=== PATIENT | male | born 1975 | race Caucasian/White ===

== ENCOUNTER 2019-10-16 12:28 | Emergency (ER) | payer BC, OTHER ==
[~2019-10-16] VITALS: Ht 177 cm; Wt 98.0 kg
[2019-10-16] MEDS ORDERED: ALPRAZolam 0.5 MG (XANAX) TAB PO SCH (12:45)
[2019-10-16] MEDS ORDERED: ASPIRIN 81 MG CHEW (CHILDREN'S ASA) PO ONE (12:45)
--- NOTE | 2019-10-16 12:52 | ED Chest Pain ---
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 He's been under a lot of stress lately due to the absence of income, getting the licensing for a new tattoo shop and the inspections today. He feels better at this time. Timing/Duration: intermittent Severity/Quality: moderate Location: central Radiation: no radiation Activities at Onset: none Prior CP/Workup: no prior chest pain ASA po CIVIL ENGINEERING DIRECTOR: Yes NTG SL CIVIL ENGINEERING DIRECTOR: No Allergies and Home Medications Allergies Coded Allergies: No Known Drug Allergies (Unverified , 10/16/19) Patient Home Medication List Home Medication List Reviewed: Yes Review of Systems Review of Systems Constitutional: see HPI EENTM: No Symptoms Reported Respiratory: No Symptoms Reported Cardiovascular: See HPI, Chest Pain Gastrointestinal: See HPI Genitourinary: No Symptoms Reported Musculoskeletal: no symptoms reported Skin: no symptoms reported Psychiatric/Neurological: No Symptoms Reported Endocrine: No Symptoms Reported Hematologic/Lymphatic: No Symptoms Reported Physical Exam Vital Signs Capillary Refill : Height, Weight, BMI Height: '" Weight: lbs. oz. kg; BMI Method: General Appearance: No Apparent Distress, WD/WN HEENT: PERRL/EOMI, TMs Normal Neck: Full Range of Motion, Normal Inspection Respiratory: No Accessory Muscle Use, No Respiratory Distress Cardiovascular: Regular Rate, Rhythm, Normal Peripheral Pulses Gastrointestinal: Non Tender, Soft Neurologic/Psychiatric: Alert, Oriented x3 Skin: Normal Color, Warm/Dry Progress/Results/Core Measures Results/Orders Lab Results Laboratory Tests Test 10/16/19 12:47 Range/Units White Blood Count 8.8 4.3-11.0 10^3/uL Red Blood Count 4.73 4.35-5.85 10^6/uL Hemoglobin 13.9 13.3-17.7 G/DL Hematocrit 41 40-54 % Mean Corpuscular Volume 88 80-99 FL Mean Corpuscular Hemoglobin 29 25-34 PG Mean Corpuscular Hemoglobin Concent 34 32-36 G/DL Red Cell Distribution Width 13.9 10.0-14.5 % Platelet Count 324 130-400 10^3/uL Mean Platelet Volume 9.2 7.4-10.4 FL Neutrophils (%) (Auto) 63 42-75 % Lymphocytes (%) (Auto) 19 12-44 % Monocytes (%) (Auto) 11 0-12 % Eosinophils (%) (Auto) 6 0-10 % Basophils (%) (Auto) 1 0-10 % Neutrophils # (Auto) 5.6 1.8-7.8 X 10^3 Lymphocytes # (Auto) 1.7 1.0-4.0 X 10^3 Monocytes # (Auto) 1.0 0.0-1.0 X 10^3 Eosinophils # (Auto) 0.5 H 0.0-0.3 10^3/uL Basophils # (Auto) 0.1 0.0-0.1 10^3/uL Prothrombin Time 12.8 12.2-14.7 SEC INR Comment 0.9 0.8-1.4 Activated Partial Thromboplast Time 26 24-35 SEC D-Dimer <= 0.27 0.00-0.49 UG/ML Sodium Level 138 135-145 MMOL/L Potassium Level 4.3 3.6-5.0 MMOL/L Chloride Level 105 98-107 MMOL/L Carbon Dioxide Level 25 21-32 MMOL/L Anion Gap 8 5-14 MMOL/L Blood Urea Nitrogen 15 7-18 MG/DL Creatinine 0.87 0.60-1.30 MG/DL Estimat Glomerular Filtration Rate > 60 BUN/Creatinine Ratio 17 Glucose Level 105 70-105 MG/DL Calcium Level 8.9 8.5-10.1 MG/DL Corrected Calcium 8.7 8.5-10.1 MG/DL Magnesium Level 2.0 1.6-2.4 MG/DL Total Bilirubin 0.4 0.1-1.0 MG/DL Aspartate Amino Transf (AST/SGOT) 17 5-34 U/L Alanine Aminotransferase (ALT/SGPT) 14 0-55 U/L Alkaline Phosphatase 88 40-136 U/L Myoglobin 73.0 10.0-92.0 NG/ML Troponin I < 0.028 <0.028 NG/ML B-Type Natriuretic Peptide 11.4 <100.0 PG/ML Total Protein 6.9 6.4-8.2 GM/DL Albumin 4.2 3.2-4.5 GM/DL Lipase 22 8-78 U/L My Orders Orders - AMAURY HSU APRN Cbc With Automated Diff (10/16/19 12:39) Magnesium (10/16/19 12:39) Chest 1 View, Ap/Pa Only (10/16/19 12:39) Ekg Tracing (10/16/19 12:39) Comprehensive Metabolic Panel (10/16/19 12:39) Myoglobin Serum (10/16/19 12:39) Protime With Inr (10/16/19 12:39) Partial Thromboplastin Time (10/16/19 12:39) O2 (10/16/19 12:39) Monitor-Rhythm Ecg Trace Only (10/16/19 12:39) Lipid Panel (10/17/19 06:00) Ed Iv/Invasive Line Start (10/16/19 12:39) Lipase (10/16/19 12:39) BNP (10/16/19 12:39) Troponin I (10/16/19 12:39) Aspirin Chewable Tablet (Baby Aspirin Ch (10/16/19 12:45) Alprazolam Tablet (Xanax Tablet) (10/16/19 12:45) Fibrin Degradation Products (10/16/19 12:47) Medications Given in ED Current Medications Medications Dose Ordered Sig/Smitha Route Start Time Stop Time Status Last Admin Dose Admin Aspirin 324 mg ONCE ONCE PO 10/16/19 12:45 10/16/19 12:46 DC 10/16/19 12:50 324 MG Departure Impression Primary Impression: Chest pain Qualified Codes: R07.9 - Chest pain, unspecified Additional Impression: Stress Disposition: 01 HOME, SELF-CARE Condition: Improved Departure-Patient Inst. Decision time for Depature: 13:54 Patient Instructions: Stress Add. Discharge Instructions: 1. Return to ER for any concerns 2. Medication prescribed can be addicting, take this as infrequently as po ssible. Follow-up with your regular doctor this week for recheck. Return to ER for any worsening. Scripts Alprazolam (Xanax) 0.5 Mg Tablet 0.5 MG PO BID PRN for ANXIETY, #10 TAB Prov: AMAURY HSU APRN 10/16/19 AMAURY HSU APRN Oct 16, 2019 12:52
[2019-10-16 12:58] LABS: BASOPHILS # (AUTO) 0.1 10^3/uL (0.0-0.1); BASOPHILS % (AUTO) 1 % (0-10); EOSINOPHILS # (AUTO) 0.5 10^3/uL (0.0-0.3); EOSINOPHILS % (AUTO) 6 % (0-10); HEMATOCRIT 41 % (40-54); HEMOGLOBIN 13.9 G/DL (13.3-17.7); LYMPHOCYTES # (AUTO) 1.7 X 10^3 (1.0-4.0); LYMPHOCYTES % (AUTO) 19 % (12-44); MEAN CORPUSCULAR HEMOGLOBIN 29 PG (25-34); MEAN CORPUSCULAR HGB CONC 34 G/DL (32-36); MEAN CORPUSCULAR VOLUME 88 FL (80-99); MEAN PLATELET VOLUME 9.2 FL (7.4-10.4); MONOCYTES % (AUTO) 11 % (0-12); NEUTROPHILS # (AUTO) 5.6 X 10^3 (1.8-7.8); NEUTROPHILS % (AUTO) 63 % (42-75); PLATELET COUNT 324 10^3/uL (130-400); RED CELL DISTRIBUTION WIDTH 13.9 % (10.0-14.5); WHITE BLOOD COUNT 8.8 10^3/uL (4.3-11.0)
[2019-10-16 13:17] LABS: FIBRIN DEGRADATION PRODUCTS <= 0.27 UG/ML (0.00-0.49); INR 0.9 (0.8-1.4); PARTIAL THROMBOPLASTIN TIME 26 SEC (24-35); PROTHROMBIN TIME PATIENT 12.8 SEC (12.2-14.7)
--- NOTE | 2019-10-16 13:20 | Diagnostic Imaging Report ---
INDICATION: Chest pain. Shortness of air. COMPARISON: None FINDINGS: Single frontal view of the chest demonstrates normal heart size and pulmonary vascularity. The lungs are well aerated and clear. No large pleural effusion or pneumothorax is seen. The visualized osseous structures show no acute abnormalities. IMPRESSION: 1. No acute cardiopulmonary process. Dictated by: Dictated on workstation # [id number]
[2019-10-16 13:24] LABS: ALANINE AMINOTRANSFERASE 14 U/L (0-55); ALBUMIN 4.2 GM/DL (3.2-4.5); ALKALINE PHOSPHATASE 88 U/L (40-136); BILIRUBIN,TOTAL 0.4 MG/DL (0.1-1.0); BUN/CREATININE RATIO 17; CALCIUM 8.9 MG/DL (8.5-10.1); CARBON DIOXIDE 25 MMOL/L (21-32); CHLORIDE 105 MMOL/L (98-107); CREATININE SERUM 0.87 MG/DL (0.60-1.30); GFR ESTIMATED > 60; GLUCOSE 105 MG/DL (70-105); LIPASE 22 U/L (8-78); POTASSIUM 4.3 MMOL/L (3.6-5.0); SODIUM 138 MMOL/L (135-145); TOTAL PROTEIN 6.9 GM/DL (6.4-8.2)
[2019-10-16] MEDS ORDERED: ALPR0.5T PO (13:56)
[2019-10-16 14:02] VITALS: BP 116/74
== END 2019-10-16 14:00 | disposition home or self-care (01) ==
LOC: ER 12:30
DX: R07.9 Chest pain, unspecified (principal); F43.9 Reaction to severe stress, unspecified
CPT/HCPCS: 36415; 71045; 80053; 83690; 83735; 83874; 83880; 84484; 85025; 85379; 85610; 85730; 93005

== ENCOUNTER 2021-01-06 21:10 | Emergency (ER) | payer BC ==
[~2021-01-06] VITALS: Ht 180 cm; Wt 132.8 kg
[~2021-01-06 21:10] MED LIST: ALPR0.5T PO
[2021-01-06] MEDS ORDERED: GBPN600T (21:30)
[2021-01-06] MEDS ORDERED: HYDR50TA76 (21:30)
[2021-01-06] MEDS ORDERED: ASPI-999 (21:30)
[2021-01-06] MEDS ORDERED: VALS1TAB80 (21:30)
[2021-01-06] MEDS ORDERED: PROP60CA (21:30)
[2021-01-06] MEDS ORDERED: ESCI20TA39 (21:30)
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
[2021-01-06 21:45] VITALS: BP 122/81
== END 2021-01-06 21:48 | disposition home or self-care (01) ==
LOC: EDUNIT# 21:10 → ER 21:12
DX: T60.91XA Toxic effect of unspecified pesticide, accidental (unintentional), initial encounter (principal); I10 Essential (primary) hypertension; F41.9 Anxiety disorder, unspecified; F31.9 Bipolar disorder, unspecified; F17.210 Nicotine dependence, cigarettes, uncomplicated
CPT/HCPCS: 99283

== ENCOUNTER 2021-07-24 05:27 | Outpatient (RCR) | payer BC ==
[~2021-07-24] VITALS: Ht 177.8 cm; Wt 143.7 kg
[~2021-07-24 05:27] MED LIST changes: +ASPI-999; +ESCI20TA39; +GABA800T10 PO; +GBPN600T; +HYDR50TA76; +LTH450TCR PO; +MELO15TA14 PO; +PROP60CA; +VALS1TAB80
== END 2021-07-24 11:49 | disposition home or self-care (01) ==
LOC: PREOP 05:27
PROVIDERS: ATTEND Surgery
DX: Z01.812 Encounter for preprocedural laboratory examination (principal); K21.9 Gastro-esophageal reflux disease without esophagitis; K92.1 Melena; Z20.822 Contact with and (suspected) exposure to COVID-19
CPT/HCPCS: 87635

== ENCOUNTER 2021-07-28 08:42 | Day surgery (SDC) | payer BC ==
[~2021-07-28] VITALS: Ht 177.8 cm; Wt 143.7 kg
[2021-07-28] VITALS (7 sets, daily range): BP systolic 124–135; BP diastolic 66–88
[2021-07-28] MEDS ORDERED: LACTATED RINGERS 1,000 ML IV ONE (09:04)
[2021-07-28] MEDS ORDERED: LACTATED RINGERS 1,000 ML IV STA (09:13)
[2021-07-28] MEDS ORDERED: HURRICAINE EXT TUBE (BENZOCAINE) XX PRN (09:15)
[2021-07-28] MEDS ORDERED: PROPOFOL INJECTION 50 ML IV ONE (10:12)
[2021-07-28] MEDS ORDERED: KETAMINE SYRINGE 50 MG/5 ML SYRINGE ONE (10:12)
[2021-07-28] MEDS ORDERED: MIDAZOLAM 2 MG/2 ML (VERSED) VIAL ONE (10:12)
[2021-07-28] MEDS ORDERED: PANT40TA2 PO (10:39)
--- NOTE | 2021-07-28 10:40 | Discharge Inst-Simple/Standard ---
Discharge Inst-Standard Discharge Medications New, Converted or Re-Newed RX: Transmitted to Pharmacy Patient Instructions/Follow Up Plan of Care/Instructions/FU: 2 weeks Dayana Activity as Tolerated: Yes Discharge Diet: Regular Diet JARED SAMUELS DO Jul 28, 2021 10:40
--- NOTE | 2021-07-28 10:43 | Progress Note-Post Operative ---
Post-Operative Progess Note Surgeon (s)/Glued Wood Tester (s) Surgeon JARED SAMUELS DO Glued Wood Tester: na Pre-Operative Diagnosis gerd, blood in stool Post-Operative Diagnosis small post fissure, int hemorrhoid, small hiatal hernia, diverticulosis, healing ulcer antrum Procedure & Operative Findings Date of Procedure 07/28/21 Procedure Performed/Findings egd c biopsies, colonoscopy Anesthesia Type per fire alarm repairer Estimated Blood Loss Estimated blood loss (mL): none Specimens/Packing Specimens Removed antrum, ge JARED SAMUELS DO Jul 28, 2021 10:43
--- NOTE | 2021-07-28 14:52 | Anesthesia-General Post-Op ---
MAC Patient Condition Mental Status/LOC: Same as Preop Cardiovascular: Satisfactory Nausea/Vomiting: Absent Respiratory: Satisfactory Pain: Controlled Complications: Absent Post Op Complications Complications None Follow Up Care/Instructions Patient Instructions None needed. Anesthesiology Discharge Order Discharge Order Patient is doing well, no complaints, stable vital signs, no apparent adverse anesthesia problems. No complications reported per nursing. BEBETO FARFAN CRNA Jul 28, 2021 14:52
--- NOTE | 2021-07-28 17:20 | OPERATIVE REPORT ---
DATE OF SERVICE: 07/28/2021 PREOPERATIVE DIAGNOSES: Gastroesophageal reflux disease, blood in stool. POSTOPERATIVE DIAGNOSES: Small posterior fissure, internal hemorrhoids, small hiatal hernia, diverticulosis, healing ulcer in antrum. PROCEDURE: EGD with biopsies, colonoscopy. SURGEON: Jared Anne DO ANESTHESIA: Per DIRECT SUPPORT STAFF MEMBER. ESTIMATED BLOOD LOSS: None. COMPLICATIONS: None. INDICATIONS: The patient is a 46-year-old male with GERD and blood in stool. He understands risks and benefits of procedure and wishes to proceed. Consent was signed in the chart. DESCRIPTION OF PROCEDURE: The patient was taken to the endoscopy suite, placed in left lateral recumbent position. Timeout was performed. Scope was inserted in mouth, down the esophagus, stomach and into the duodenum without difficulty. There were no polyps, masses or ulcerations within the duodenum. Scope was slowly retracted back into the stomach where there were some inflammatory changes, looks as if there is a small healing ulcer. Biopsy of this area was obtained. Scope was slowly retracted back. Scope was retroflexed noting a small hiatal hernia, no other pathology. Scope was returned to its normal position, slowly withdrawn to distal esophagus. Biopsy of the GE junction was obtained. Scope was slowly retracted back until completely removed. Digital rectal exam was performed noting a small posterior fissure and also large internal hemorrhoid. No palpable polyps, masses or ulcerations otherwise. Scope was inserted in the rectum and advanced all the way to cecum with minimal difficulty. Prep was adequate. Scope was slowly retracted back. No polyps, masses or ulcerations within the cecum, ascending, transverse, descending colon and sigmoid colon, some diverticulosis present. No other pathology. Scope was continued back into the rectum, where it was also retroflexed noting the internal hemorrhoid. No other pathology. Scope was returned to its normal position, slowly withdrawn until completely removed. The patient tolerated the procedure well without any complications, taken to recovery room in stable condition. RECOMMENDATIONS: The patient will be started on Protonix 40 mg daily. We will consider hemorrhoidectomy. We will have the patient follow up in a couple of weeks to discuss pathology results. The patient will need repeat colonoscopy in 10 years unless family history of colon cancer, which then be 5 years any issues before that be seen at that time. We would recommend high-fiber diet due to diverticulosis. CC: [place] - requested, unable to deliver. Job ID: [id number] DocumentID: [id number] Dictated Date: 07/28/2021 10:46:17 Regional Environmental Manager Date: 07/28/2021 17:19:07 Dictated By: JARED ANNE DO
== END 2021-07-28 11:55 | disposition home or self-care (01) ==
LOC: ENDO 08:42
PROVIDERS: ATTEND Surgery
DX: K25.9 Gastric ulcer, unspecified as acute or chronic, without hemorrhage or perforation (principal); K92.1 Melena; K21.9 Gastro-esophageal reflux disease without esophagitis; K64.8 Other hemorrhoids; K44.9 Diaphragmatic hernia without obstruction or gangrene; K57.30 Diverticulosis of large intestine without perforation or abscess without bleeding; K60.2 Anal fissure, unspecified; K31.89 Other diseases of stomach and duodenum; Z79.1 Long term (current) use of non-steroidal anti-inflammatories (NSAID); Z79.899 Other long term (current) drug therapy; E66.01 Morbid (severe) obesity due to excess calories; Z68.42 Body mass index [BMI] 45.0-49.9, adult; F32.A Depression, unspecified; G47.33 Obstructive sleep apnea (adult) (pediatric); J44.9 Chronic obstructive pulmonary disease, unspecified; I10 Essential (primary) hypertension; F41.9 Anxiety disorder, unspecified; Z79.82 Long term (current) use of aspirin; F17.210 Nicotine dependence, cigarettes, uncomplicated; E78.00 Pure hypercholesterolemia, unspecified

== ENCOUNTER 2021-11-28 13:01 | Emergency (ER) | payer BC ==
[~2021-11-28] VITALS: Ht 180.3 cm; Wt 137.8 kg
[~2021-11-28 13:01] MED LIST changes: +PANT40TA2 PO
[2021-11-28] MEDS ORDERED: ASPIRIN 81 MG CHEW (CHILDREN'S ASA) PO ONE (13:15)
[2021-11-28 13:26] LABS: BASOPHILS # (AUTO) 0.1 10^3/uL (0.0-0.1); BASOPHILS % (AUTO) 1 % (0-10); EOSINOPHILS # (AUTO) 0.5 10^3/uL (0.0-0.3); EOSINOPHILS % (AUTO) 6 % (0-10); HEMATOCRIT 44 % (40-54); HEMOGLOBIN 14.6 g/dL (13.3-17.7); LYMPHOCYTES # (AUTO) 1.6 10^3/uL (1.0-4.0); LYMPHOCYTES % (AUTO) 19 % (12-44); MEAN CORPUSCULAR HEMOGLOBIN 29 pg (25-34); MEAN CORPUSCULAR HGB CONC 34 g/dL (32-36); MEAN CORPUSCULAR VOLUME 88 fL (80-99); MEAN PLATELET VOLUME 8.8 fL (9.0-12.2); MONOCYTES # (AUTO) 0.9 10^3/uL (0.0-1.0); MONOCYTES % (AUTO) 11 % (0-12); NEUTROPHILS # (AUTO) 5.3 10^3/uL (1.8-7.8); NEUTROPHILS % (AUTO) 63 % (42-75); PLATELET COUNT 313 10^3/uL (130-400); WHITE BLOOD COUNT 8.3 10^3/uL (4.3-11.0)
[2021-11-28 13:35] LABS: ALBUMIN 4.2 GM/DL (3.2-4.5)
[2021-11-28 13:36] LABS: POTASSIUM 4.5 MMOL/L (3.6-5.0)
--- NOTE | 2021-11-28 13:36 | Diagnostic Imaging Report ---
Indication: Chest pain Compared with study 10/16/2019. Findings: The lungs are clear. Upper limits heart size stable. No overt failure pattern. Vascular congestion, effusion, pneumothorax or evidence of edema. Impression: Stable chest. Dictated by: Dictated on workstation # [id number]
[2021-11-28 13:37] LABS: CALCIUM 9.1 MG/DL (8.5-10.1)
[2021-11-28 13:38] LABS: INR 0.9 (0.8-1.4); PROTHROMBIN TIME PATIENT 12.8 SEC (12.2-14.7); TOTAL PROTEIN 6.8 GM/DL (6.4-8.2)
[2021-11-28 13:40] LABS: BILIRUBIN,TOTAL 0.4 MG/DL (0.1-1.0)
[2021-11-28 13:42] LABS: CREATININE SERUM 0.94 MG/DL (0.60-1.30)
--- NOTE | 2021-11-28 13:53 | ED Chest Pain ---
General Chief Complaint: Chest Pain Stated Complaint: CHEST PAIN/PALPITATIONS Nursing Triage Note: Pt ambulatory into ER with complaint of chest pain x2 days. Pt states that pain comes and goes. Pt described pain currently as a burning/itchy like feeling. Pain rated at a 4/10. History of Present Illness Date Seen by Provider: Nov 28, 2021 Time Seen by Provider: 13:20 Initial Comments 46 year old male presents for chest pain that has been present intermittently for 2-3 days. Prior to admission he was having an argument with his significant other and began to have palpitations. He came here immediately. He is not currently having palpitations or chest pain. He has a history of reflux and panic attacks. He has not been taking his medications regularly, he reports there are refills to pickle cutter at [facility]. He reports being under more stress. He has seen mental health at [facility] in the past. He denies a specific reason why he has not followed up with medical care, only concern is time and stress. Timing/Duration: 2-3 days Severity/Quality: mild Location: epigastric Radiation: no radiation Prior CP/Workup: no prior chest pain Modifying Factors: improves with rest ASA po MILEAGE CLERK: No NTG SL MILEAGE CLERK: No Associated Symptoms: No abdominal pain, No back pain, No diaphoresis, No dizziness, No headache; heartburn; No nausea/vomiting, No shortness of breath, No swelling/lump in chest, No syncope Allergies and Home Medications Allergies Coded Allergies: acetaminophen (Unverified Allergy, Unknown, 07/21/21) hydrocodone (Unverified Allergy, Unknown, 07/21/21) spinach (Unverified Allergy, Unknown, 07/21/21) Patient Home Medication List Home Medication List Reviewed: Yes Alprazolam (Xanax) 0.5 Mg Tablet, 0.5 MG PO BID PRN for ANXIETY Prescribed by: AMAURY HSU on 10/16/19 1356 Aspirin (Aspirin) 81 Mg Tab.chew, (Reported) Entered as Reported by: AMERICA OTERO on 01/06/212129 Escitalopram Oxalate (Escitalopram Oxalate) 20 Mg Tablet, (Reported) Entered as Reported by: AMERICA OTERO on 01/06/212129 Gabapentin (Gabapentin) 800 Mg Tablet, 800 MG PO TID, (Reported) Entered as Reported by: RAHAT SALGADO on 07/21/21 1257 Hydroxyzine HCl (Hydroxyzine HCl) 50 Mg Tablet, (Reported) Entered as Reported by: AMERICA OTERO on 01/06/212129 [place] Carbonate ([place] Carbonate ER) 450 Mg Tab, 450 MG PO BID, (Reported) Entered as Reported by: RAHAT SALGADO on 07/21/21 1257 Meloxicam (Mobic) 15 Mg Tablet, 15 MG PO DAILY, (Reported) Entered as Reported by: RAHAT SALGADO on 07/21/21 1257 Pantoprazole Sodium (Protonix) 40 Mg Tablet.dr, 40 MG PO DAILY Prescribed by: JARED SAMUELS on 07/28/21 1039 Propranolol HCl (Propranolol HCl ER) 60 Mg Cap.sa.24h, (Reported) Entered as Reported by: AMERICA OTERO on 01/06/212129 Valsartan/Hydrochlorothiazide (Valsartan-Hctz 320-25 mg Tab) 1 Each Tablet, (Reported) Entered as Reported by: AMERICA OTERO on 01/06/212129 Review of Systems Review of Systems Constitutional: no symptoms reported, see HPI EENTM: No Symptoms Reported, See HPI Respiratory: No Symptoms Reported, See HPI Cardiovascular: See HPI, Palpitations Gastrointestinal: No Symptoms Reported, See HPI Genitourinary: No Symptoms Reported, See HPI All Other Systems Reviewed Negative Unless Noted: Yes Past Fuzkhkl-Llcgbs-Zwhotx Hx Patient Social History Tobacco Use?: Yes Tobacco type used: Cigarettes Smoking Status: Current Everyday Smoker Use of E-Cig and/or Vaping dev: No Substance use?: Yes Substance type: Marijuana Substance frequency: Couple times a week Alcohol Use?: No Pt feels they are or have been: No Immunizations Up To Date Tetanus Booster (TDap): Unknown PED Vaccines UTD: Yes Influenza Vaccine Up-to-Date: No; Not Current Seasonal Allergies Seasonal Allergies: No Past Medical History Surgeries: Yes Appendectomy Respiratory: Yes Sleep Apnea, COPD Currently Using CPAP: Yes Cardiac: Yes High Cholesterol, Hypertension Neurological: No Genitourinary: No Gastrointestinal: Yes (DIVERTICULITIS) Musculoskeletal: No Endocrine: No HEENT: No Cancer: No Psychosocial: Yes Anxiety, Bipolar, Depression Integumentary: Yes (TATTOOS) Blood Disorders: No Adverse Reaction/Blood Tranf: No Family Medical History Reviewed Nursing Family Hx Physical Exam Vital Signs Vital Signs - First Documented 11/28/21 13:38 Temp 36.7 Pulse 83 Resp 20 B/P (MAP) 135/95 (108) Pulse Ox 96 O2 Delivery Room Air Capillary Refill : Less Than 3 Seconds Height, Weight, BMI Height: '" Weight: lbs. oz. kg; 42.00 BMI Method: General Appearance: No Apparent Distress, WD/WN, Other Neck: Full Range of Motion, Normal Inspection, Non Tender, Supple Respiratory: Chest Non Tender, Lungs Clear, Normal Breath Sounds Cardiovascular: Regular Rate, Rhythm, No Edema, Normal Peripheral Pulses Gastrointestinal: Normal Bowel Sounds, Non Tender, Soft Neurologic/Psychiatric: Alert, Oriented x3, No Motor/Sensory Deficits, Normal Mood/Affect Skin: Normal Color, Warm/Dry Progress/Results/Core Measures Results/Orders Lab Results Laboratory Tests Test 11/28/21 13:14 Range/Units White Blood Count 8.3 4.3-11.0 10^3/uL Red Blood Count 4.96 4.30-5.52 10^6/uL Hemoglobin 14.6 13.3-17.7 g/dL Hematocrit 44 40-54 % Mean Corpuscular Volume 88 80-99 fL Mean Corpuscular Hemoglobin 29 25-34 pg Mean Corpuscular Hemoglobin Concent 34 32-36 g/dL Red Cell Distribution Width 13.2 10.0-14.5 % Platelet Count 313 130-400 10^3/uL Mean Platelet Volume 8.8 L 9.0-12.2 fL Immature Granulocyte % (Auto) 0 % Neutrophils (%) (Auto) 63 42-75 % Lymphocytes (%) (Auto) 19 12-44 % Monocytes (%) (Auto) 11 0-12 % Eosinophils (%) (Auto) 6 0-10 % Basophils (%) (Auto) 1 0-10 % Neutrophils # (Auto) 5.3 1.8-7.8 10^3/uL Lymphocytes # (Auto) 1.6 1.0-4.0 10^3/uL Monocytes # (Auto) 0.9 0.0-1.0 10^3/uL Eosinophils # (Auto) 0.5 H 0.0-0.3 10^3/uL Basophils # (Auto) 0.1 0.0-0.1 10^3/uL Immature Granulocyte # (Auto) 0.0 0.0-0.1 10^3/uL Prothrombin Time 12.8 12.2-14.7 SEC INR Comment 0.9 0.8-1.4 Activated Partial Thromboplast Time 26 24-35 SEC Sodium Level 138 135-145 MMOL/L Potassium Level 4.5 3.6-5.0 MMOL/L Chloride Level 104 98-107 MMOL/L Carbon Dioxide Level 21 21-32 MMOL/L Anion Gap 13 5-14 MMOL/L Blood Urea Nitrogen 12 7-18 MG/DL Creatinine 0.94 0.60-1.30 MG/DL Estimat Glomerular Filtration Rate 102 BUN/Creatinine Ratio 13 Glucose Level 102 70-105 MG/DL Calcium Level 9.1 8.5-10.1 MG/DL Corrected Calcium 8.9 8.5-10.1 MG/DL Magnesium Level 2.0 1.6-2.4 MG/DL Total Bilirubin 0.4 0.1-1.0 MG/DL Aspartate Amino Transf (AST/SGOT) 14 5-34 U/L Alanine Aminotransferase (ALT/SGPT) 19 0-55 U/L Alkaline Phosphatase 82 40-136 U/L Myoglobin 63.0 10.0-92.0 NG/ML Troponin I < 0.028 <0.028 NG/ML B-Type Natriuretic Peptide 29.1 <100.0 PG/ML Total Protein 6.8 6.4-8.2 GM/DL Albumin 4.2 3.2-4.5 GM/DL My Orders Orders - CHERIE MARTINEZ Cbc With Automated Diff (11/28/21 13:10) Magnesium (11/28/21 13:10) Chest 1 View, Ap/Pa Only (11/28/21 13:10) Ekg Tracing (11/28/21 13:10) Comprehensive Metabolic Panel (11/28/21 13:10) Myoglobin Serum (11/28/21 13:10) Protime With Inr (11/28/21 13:10) Partial Thromboplastin Time (11/28/21 13:10) O2 (11/28/21 13:10) Monitor-Rhythm Ecg Trace Only (11/28/21 13:10) Ed Iv/Invasive Line Start (11/28/21 13:10) Bnp Minda (11/28/21 13:10) Troponin I [place] (11/28/21 13:10) Aspirin Chewable Tablet (Baby Aspirin Ch (11/28/21 13:15) Medications Given in ED Current Medications Medications Dose Ordered Sig/Smitha Route Start Time Stop Time Status Last Admin Dose Admin Aspirin 324 mg ONCE ONCE PO 11/28/21 13:15 11/28/21 13:16 DC 11/28/21 13:32 324 MG Vital Signs/I&O 11/28/21 13:38 Temp 36.7 Pulse 83 Resp 20 B/P (MAP) 135/95 (108) Pulse Ox 96 O2 Delivery Room Air Blood Pressure Mean: 108 Progress Progress Note : Time: : Progress Note Patient seen and evaluated, will obtain labs, chest x-ray, EKG and give aspirin 324 mg orally. Since he is having no active chest pain we will hold on giving any nitro. 1415 patient has continued to have no chest pain, palpitations or reflux symptoms. He is requesting prescriptions for his routine medications. Stressed that he should follow-up with [facility] pharmacy if he has refills or prescriptions active there from his PCP, as these medications are ordered by his PCP and should be managed there. Discharge instructions and return precautions reviewed with him Initial ECG Impression Date: Nov 28, 2021 Initial ECG Impression Time: : Initial ECG Rate: 85 Initial ECG Rhythm: Normal Sinus Initial ECG Intervals: Normal Initial ECG Intervals AL 156, QRSD 104, QT 366, QTc 436. [place] P 55, QRS 31, T 32. Diagnostic Imaging Diagonstic Imaging: Xray Plain Films/CT/US/NM/MRI: chest Comments NAME: DEONTE CODY [facility] REC#: [id number] PT STATUS: REG ER : 1975 PHYSICIAN: CHERIE MARTINEZ ADMIT DATE: 11/28/21/ER Signed Date of Exam:11/28/21 CHEST 1 VIEW, AP/PA ONLY Indication: Chest pain Compared with study 10/16/2019. Findings: The lungs are clear. Upper limits heart size stable. No overt failure pattern. Vascular congestion, effusion, pneumothorax or evidence of edema. Impression: Stable chest. Dictated by: Dictated on workstation # [id number] Dict: 11/28/21 1333 Trans: 11/28/21 1406 [facility] [id number] Interpreted by: CARLOS ENRIQUE COLBERT Electronically signed by: CARLOS ENRIQUE COLBERT 11/28/21 1406 Departure Impression Primary Impression: Chest pain, non-cardiac Disposition: 01 HOME, SELF-CARE Condition: Stable Departure-Patient Inst. Decision time for Depature: 14:06 Referrals: [facility]/TONYA (PCP) Primary Care Physician EUGENIO YANG (Family) Primary Care Physician Patient Instructions: Chest Pain That Is Not Caused by the Heart (DC) Add. Discharge Instructions: Follow-up with [facility] pharmacy to obtain your prescription refills. Schedule an appointment with your primary care provider at [facility] for follow-up. Resume all medications as previously prescribed. Return to the emergency department for new, urgent healthcare needs. All discharge instructions reviewed with patient and/or family. Voiced understanding. CHERIE MARTINEZ Nov 28, 2021 13:53
[2021-11-28 14:30] VITALS: BP 133/95
== END 2021-11-28 14:34 | disposition home or self-care (01) ==
LOC: EDUNIT# 13:01 → ER 13:04
DX: R07.89 Other chest pain (principal); F17.210 Nicotine dependence, cigarettes, uncomplicated; Z86.79 Personal history of other diseases of the circulatory system; Z86.59 Personal history of other mental and behavioral disorders; Z87.19 Personal history of other diseases of the digestive system
CPT/HCPCS: 36415; 71045; 80053; 83735; 83874; 83880; 84484; 85025; 85610; 85730; 93005; 93041

== ENCOUNTER 2022-06-21 20:08 | Emergency (ER) | payer BC ==
--- NOTE | 2022-06-21 20:17 | ED General ---
General Stated Complaint: HEADACHE,NAUSEA,FATIGUE,FEVER Source of Information: Patient Exam Limitations: No Limitations History of Present Illness Date Seen by Provider: Jun 21, 2022 Time Seen by Provider: 20:15 Initial Comments To ER with headache nausea fatigue fever onset yesterday. Timing/Duration: 1-2 Days Severity: Moderate Associated Systoms: Denies Symptoms Allergies and Home Medications Allergies Coded Allergies: acetaminophen (Unverified Allergy, Unknown, 07/21/21) hydrocodone (Unverified Allergy, Unknown, 07/21/21) spinach (Unverified Allergy, Unknown, 07/21/21) Patient Home Medication List Home Medication List Reviewed: Yes Alprazolam (Xanax) 0.5 Mg Tablet, 0.5 MG PO BID PRN for ANXIETY Prescribed by: AMAURY HSU on 10/16/19 1356 Aspirin (Aspirin) 81 Mg Tab.chew, (Reported) Entered as Reported by: AMERICA OTERO on 01/06/212129 Escitalopram Oxalate (Escitalopram Oxalate) 20 Mg Tablet, (Reported) Entered as Reported by: AMERICA OTERO on 01/06/212129 Gabapentin (Gabapentin) 800 Mg Tablet, 800 MG PO TID, (Reported) Entered as Reported by: RAHAT SALGADO on 07/21/21 1257 Hydroxyzine HCl (Hydroxyzine HCl) 50 Mg Tablet, (Reported) Entered as Reported by: AMERICA OTERO on 01/06/212129 [place] Carbonate ([place] Carbonate ER) 450 Mg Tab, 450 MG PO BID, (Reported) Entered as Reported by: RAHAT SALGADO on 07/21/21 1257 Meloxicam (Mobic) 15 Mg Tablet, 15 MG PO DAILY, (Reported) Entered as Reported by: RAHAT SALGADO on 07/21/21 1257 Pantoprazole Sodium (Protonix) 40 Mg Tablet.dr, 40 MG PO DAILY Prescribed by: JARED SAMUELS on 07/28/21 1039 Propranolol HCl (Propranolol HCl ER) 60 Mg Cap.sa.24h, (Reported) Entered as Reported by: AMERCIA OTERO on 01/06/212129 Valsartan/Hydrochlorothiazide (Valsartan-Hctz 320-25 mg Tab) 1 Each Tablet, (Reported) Entered as Reported by: AMERICA OTERO on 01/06/212129 Review of Systems Review of Systems Constitutional: see HPI, chills, malaise, weakness EENTM: see HPI Respiratory: see HPI, cough Cardiovascular: no symptoms reported Genitourinary: no symptoms reported Musculoskeletal: no symptoms reported Skin: no symptoms reported Psychiatric/Neurological: No Symptoms Reported Hematologic/Lymphatic: No Symptoms Reported Past Yaabexn-Dshonm-Lskegg Hx Immunizations Up To Date Tetanus Booster (TDap): Unknown PED Vaccines UTD: Yes Seasonal Allergies Seasonal Allergies: No Past Medical History Surgeries: Yes Appendectomy Respiratory: Yes Sleep Apnea, COPD Currently Using CPAP: Yes Cardiac: Yes High Cholesterol, Hypertension Neurological: No Genitourinary: No Gastrointestinal: Yes (DIVERTICULITIS) Musculoskeletal: No Endocrine: No HEENT: No Cancer: No Psychosocial: Yes Anxiety, Bipolar, Depression Integumentary: Yes (TATTOOS) Blood Disorders: No Adverse Reaction/Blood Tranf: No Physical Exam Vital Signs Vital Signs - First Documented 06/21/22 20:17 Temp 36.9 Pulse 110 Resp 22 B/P (MAP) 155/95 (115) Pulse Ox 95 O2 Delivery Room Air Capillary Refill : Height, Weight, BMI Height: '" Weight: lbs. oz. kg; 42.00 BMI Method: General Appearance: No Apparent Distress, WD/WN Eyes: Bilateral Eye Normal Inspection, Bilateral Eye PERRL, Bilateral Eye EOMI HEENT: PERRL/EOMI, TMs Normal Neck: Full Range of Motion, Normal Inspection Respiratory: No Accessory Muscle Use, No Respiratory Distress Cardiovascular: Regular Rate, Rhythm, Normal Peripheral Pulses Gastrointestinal: Normal Bowel Sounds, Non Tender, Soft Extremity: Normal Capillary Refill, Normal Inspection Neurologic/Psychiatric: Alert, Oriented x3 Skin: Normal Color, Warm/Dry Progress/Results/Core Measures Suspected Sepsis SIRS Temperature: Pulse: Respiratory Rate: Blood Pressure / Mean: Results/Orders Lab Results Laboratory Tests Test 06/21/22 20:20 Range/Units Influenza Type A (RT-PCR) Not Detected Not Detecte Influenza Type B (RT-PCR) Not Detected Not Detecte SARS-CoV-2 RNA (RT-PCR) Detected H Not Detecte My Orders Orders - AMAURY HSU APRN Covid 19 Inhouse Test (06/21/22 20:20) Influenza A And B By Pcr (06/21/22 20:20) Ondansetron Oral Dissolve Tab (Zofran (06/21/22 20:30) Ibuprofen Tablet (Motrin Tablet) (06/21/22 21:00) Medications Given in ED Current Medications Medications Dose Ordered Sig/Smitha Route Start Time Stop Time Status Last Admin Dose Admin Ondansetron HCl 8 mg ONCE ONCE PO 06/21/22 20:30 06/21/22 20:31 DC 06/21/22 20:25 8 MG Vital Signs/I&O 06/21/22 06/21/22 20:17 20:17 Temp 36.9 Pulse 110 Resp 22 B/P (MAP) 155/95 (115) Pulse Ox 95 O2 Delivery Room Air Room Air Capillary Refill : Departure Impression Primary Impression: COVID-19 Disposition: 01 HOME, SELF-CARE Condition: Stable Departure-Patient Inst. Decision time for Depature: 20:59 Referrals: [facility] (PCP) Primary Care Physician EUGENIO YANG (Family) Primary Care Physician Patient Instructions: COVID-19 Overview Add. Discharge Instructions: 1. Use Tylenol and ibuprofen for fever and body ache control. Return to ER for any concerns. Scripts Molnupiravir (Molnupiravir (Eua)) 200 Mg Capsule 800 MG PO BID for 5 Days, #40 CAP Prov: AMAURY HSU APRN 06/21/22 Work/School Note: Work Release Form Date Seen in the Emergency Department: Jun 21, 2022 Return to Work: Jun 27, 2022 AMAURY HSU APRN Jun 21, 2022 20:17
[2022-06-21] MEDS ORDERED: ONDANSETRON 4 MG (ZOFRAN) ORAL DISSOLVE TAB PO ONE (20:30)
[2022-06-21] MEDS ORDERED: IBUPROFEN 800 MG (MOTRIN) TAB PO ONE (21:00)
[2022-06-21] MEDS ORDERED: MOLN200C PO (21:01)
[2022-06-21 21:10] VITALS: BP 111/58
== END 2022-06-21 21:10 | disposition home or self-care (01) ==
LOC: EDUNIT# 20:08 → ER 20:10
DX: U07.1 COVID-19 (principal); Z88.6 Allergy status to analgesic agent; Z28.310 Unvaccinated for COVID-19; Z87.09 Personal history of other diseases of the respiratory system
CPT/HCPCS: 87636; 99283

== ENCOUNTER 2023-02-14 13:55 | Emergency (ER) | payer OTHER ==
[~2023-02-14] VITALS: Ht 177.8 cm; Wt 139.5 kg
[~2023-02-14 13:55] MED LIST changes: +MOLN200C PO
[2023-02-14] MEDS ORDERED: ASPIRIN 81 MG CHEW (CHILDREN'S ASA) PO ONE (14:30)
--- NOTE | 2023-02-14 14:33 | ED Chest Pain ---
General Chief Complaint: Chest Pain Stated Complaint: CHEST DISCOMFORT X 7 DAYS Nursing Triage Note: PT AMB TO ED BY POV WITH C/O INTERMITTENT CP. PT REPORTS HE HAS BEEN UNDER A LOT OF STRESS RECENTLY AND HAVING INCREASED PANIC ATTACKS. PT REPORTS 20-30 SECONDS OF NON RADIATING L SIDED CP 4 DAYS AGO AND AGAIN LAST NIGHT. EPISODE OF CP WOKE HIM UP FROM SLEEP. DENIES SOB OR ANY OTHER SX WITH CP. DENIES CP AT THIS TIME. Source: patient Exam Limitations: no limitations (JESSICA OLSEN) History of Present Illness Date Seen by Provider: Feb 14, 2023 Time Seen by Provider: 14:30 Initial Comments Patient is a 48-year-old male who presents ED with intermittent left-sided chest pain. Chest pain described as sharp and stabbing. Does not radiate. Noticed symptoms about 4 to 5 days ago. This pain became worse 2 nights ago while sitting at home. Pain last for about 20 seconds. Patient states he woke up the pain last night. Described as sharp lasting 20 to 30 seconds. Episode this morning while walking. Pain is not increased with eating. Pain is not necessarily associated with walking. Patient took some Benadryl to help with the symptoms as he thought some of the symptoms may be result of allergies. He reports history of similar type pain however typically pain is resolved from a panic attack. States he does feel slightly anxious but does not feel as anxious. Denies of any shortness of breath, cough, vomiting, nausea. No history of hypertension, diabetes, high cholesterol. Reports increased smoking for the past 5 days secondary to a in the family. No known cardiac history. Denies any recent travels or surgeries, leg swelling or pain. Denies headache, dizziness, visual changes, abdominal pain. Denies taking medication for his symptoms besides taking the Benadryl for concern for allergy related. (JESSICA OLSEN) Allergies and Home Medications Allergies Coded Allergies: acetaminophen (Unverified Allergy, Unknown, 07/21/21) hydrocodone (Unverified Allergy, Unknown, 07/21/21) spinach (Unverified Allergy, Unknown, 07/21/21) Patient Home Medication List Home Medication List Reviewed: Yes (JESSICA OLSEN) Alprazolam (Xanax) 0.5 Mg Tablet, 0.5 MG PO BID PRN for ANXIETY Prescribed by: AMAURY HSU on 10/16/19 1356 Aspirin (Aspirin) 81 Mg Tab.chew, (Reported) Entered as Reported by: AMERICA OTERO on 01/06/212129 Escitalopram Oxalate (Escitalopram Oxalate) 20 Mg Tablet, (Reported) Entered as Reported by: AMERICA OTERO on 01/06/212129 Gabapentin (Gabapentin) 800 Mg Tablet, 800 MG PO TID, (Reported) Entered as Reported by: RAHAT SALGADO on 07/21/21 1257 Hydroxyzine HCl (Hydroxyzine HCl) 50 Mg Tablet, (Reported) Entered as Reported by: AMERICA OTERO on 01/06/212129 Lehr Carbonate (Lehr Carbonate ER) 450 Mg Tab, 450 MG PO BID, (Reported) Entered as Reported by: RAHAT SALGADO on 07/21/21 1257 Meloxicam (Mobic) 15 Mg Tablet, 15 MG PO DAILY, (Reported) Entered as Reported by: RAHAT SALGADO on 07/21/21 1257 Molnupiravir (Molnupiravir (Eua)) 200 Mg Capsule, 800 MG PO BID Prescribed by: AMAURY HSU on 06/21/222100 Pantoprazole Sodium (Protonix) 40 Mg Tablet.dr, 40 MG PO DAILY Prescribed by: JARED SAMUELS on 07/28/21 103 Propranolol HCl (Propranolol HCl ER) 60 Mg Cap.sa.24h, (Reported) Entered as Reported by: AMERICA OTERO on 01/06/212129 Valsartan/Hydrochlorothiazide (Valsartan-Hctz 320-25 mg Tab) 1 Each Tablet, (Reported) Entered as Reported by: AMERICA OTERO on 01/06/212129 Review of Systems Review of Systems Constitutional: No chills, No diaphoresis EENTM: No Double Vision, No Eye Pain Respiratory: Denies Cough, Denies Orthopnea Cardiovascular: Chest Pain; Denies Edema, Denies Irregular Heart Rate Gastrointestinal: Denies Abdominal Pain, Denies Diarrhea, Denies Nausea Genitourinary: Denies Burning, Denies Discharge, Denies Drainage, Denies Frequency Musculoskeletal: No back pain, No joint pain Skin: No change in color, No change in hair/nails (JESSICA OLSEN) All Other Systems Reviewed Negative Unless Noted: Yes (JESSICA OLSEN) Past Ogclige-Amtdtc-Eesyai Hx Patient Social History Tobacco Use?: Yes Tobacco type used: Cigarettes Smoking Status: Current Everyday Smoker Use of E-Cig and/or Vaping dev: Yes E-Cig or Vaping type used: Marijuana Substance use?: Yes Substance type: Marijuana Substance frequency: Daily Alcohol Use?: No Pt feels they are or have been: No (JESSICA OLSEN) Immunizations Up To Date Tetanus Booster (TDap): Unknown PED Vaccines UTD: Yes Influenza Vaccine Up-to-Date: No; Not Current (JESSICA OLSEN) Seasonal Allergies Seasonal Allergies: No (JESSICA OLSEN) Past Medical History Surgery/Hospitalization HX: APPE Surgeries: Yes Appendectomy Respiratory: Yes Sleep Apnea, COPD Currently Using CPAP: Yes Cardiac: Yes High Cholesterol, Hypertension Neurological: No Genitourinary: No Gastrointestinal: Yes (DIVERTICULITIS) Musculoskeletal: No Endocrine: No HEENT: No Cancer: No Psychosocial: Yes Anxiety, Bipolar, Depression Integumentary: Yes (TATTOOS) Blood Disorders: No Adverse Reaction/Blood Tranf: No (JESSICA OLSEN) Physical Exam Vital Signs Vital Signs - First Documented 02/14/23 14:06 Temp 36.9 Pulse 97 Resp 18 B/P (MAP) 143/99 (114) Pulse Ox 95 O2 Delivery Room Air (MAYRA RODRIGUEZ MD) Vital Signs Capillary Refill : Less Than 3 Seconds (JESSICA OLSEN) Height, Weight, BMI Height: '" Weight: lbs. oz. kg; 44.00 BMI Method: General Appearance: No Apparent Distress, WD/WN HEENT: PERRL/EOMI, TMs Normal, Normal ENT Inspection, Pharynx Normal Neck: Full Range of Motion, Normal Inspection, Non Tender, Supple Respiratory: Chest Non Tender, Lungs Clear, Normal Breath Sounds, No Accessory Muscle Use, No Respiratory Distress Cardiovascular: Regular Rate, Rhythm, No Edema, No Gallop, No JVD Gastrointestinal: Normal Bowel Sounds, No Organomegaly, No Pulsatile Mass Neurologic/Psychiatric: Alert, Oriented x3, No Motor/Sensory Deficits, Normal Mood/Affect, nurseryman assistant II-XII Norm as Tested Skin: Normal Color, Warm/Dry Lymphatic: No Adenopathy (JESSICA OLSEN) Progress/Results/Core Measures Results/Orders Lab Results Laboratory Tests Test 02/14/23 14:54 Range/Units White Blood Count 10.0 4.3-11.0 10^3/uL Red Blood Count 5.21 4.30-5.52 10^6/uL Hemoglobin 15.3 13.3-17.7 g/dL Hematocrit 46 40-54 % Mean Corpuscular Volume 88 80-99 fL Mean Corpuscular Hemoglobin 29 25-34 pg Mean Corpuscular Hemoglobin Concent 33 32-36 g/dL Red Cell Distribution Width 13.4 10.0-14.5 % Platelet Count 330 130-400 10^3/uL Mean Platelet Volume 8.9 L 9.0-12.2 fL Immature Granulocyte % (Auto) 0 % Neutrophils (%) (Auto) 66 42-75 % Lymphocytes (%) (Auto) 22 12-44 % Monocytes (%) (Auto) 8 0-12 % Eosinophils (%) (Auto) 4 0-10 % Basophils (%) (Auto) 1 0-10 % Neutrophils # (Auto) 6.5 1.8-7.8 10^3/uL Lymphocytes # (Auto) 2.2 1.0-4.0 10^3/uL Monocytes # (Auto) 0.8 0.0-1.0 10^3/uL Eosinophils # (Auto) 0.4 H 0.0-0.3 10^3/uL Basophils # (Auto) 0.1 0.0-0.1 10^3/uL Immature Granulocyte # (Auto) 0.0 0.0-0.1 10^3/uL Prothrombin Time 13.1 12.2-14.7 SEC INR Comment 1.0 0.8-1.4 Activated Partial Thromboplast Time 26 24-35 SEC Sodium Level 138 135-145 MMOL/L Potassium Level 4.0 3.6-5.0 MMOL/L Chloride Level 105 98-107 MMOL/L Carbon Dioxide Level 25 21-32 MMOL/L Anion Gap 8 5-14 MMOL/L Blood Urea Nitrogen 12 7-18 MG/DL Creatinine 0.95 0.60-1.30 MG/DL Estimat Glomerular Filtration Rate 99 BUN/Creatinine Ratio 13 Glucose Level 102 70-105 MG/DL Calcium Level 9.3 8.5-10.1 MG/DL Corrected Calcium 9.2 8.5-10.1 MG/DL Magnesium Level 2.1 1.6-2.4 MG/DL Total Bilirubin 0.4 0.1-1.0 MG/DL Aspartate Amino Transf (AST/SGOT) 19 5-34 U/L Alanine Aminotransferase (ALT/SGPT) 34 0-55 U/L Alkaline Phosphatase 87 40-136 U/L Myoglobin 61.7 10.0-92.0 NG/ML Troponin I < 0.028 <0.028 NG/ML Total Protein 7.2 6.4-8.2 GM/DL Albumin 4.1 3.2-4.5 GM/DL (MAYRA RODRIGUEZ MD) My Orders Orders - MAYRA RODRIGUEZ MD Cbc With Automated Diff (02/14/23 14:14) Magnesium (02/14/23 14:14) Chest 1 View, Ap/Pa Only (02/14/23 14:14) Ekg Tracing (02/14/23 14:14) Comprehensive Metabolic Panel (02/14/23 14:14) Myoglobin Serum (02/14/23 14:14) Protime With Inr (02/14/23 14:14) Partial Thromboplastin Time (02/14/23 14:14) O2 (02/14/23 14:14) Monitor-Rhythm Ecg Trace Only (02/14/23 14:14) Ed Iv/Invasive Line Start (02/14/23 14:14) Troponin I Grant (02/14/23 14:14) (MAYRA RODRIGUEZ MD) Medications Given in ED Current Medications Medications Dose Ordered Sig/Smitha Route Start Time Stop Time Status Last Admin Dose Admin Aspirin 324 mg ONCE ONCE PO 02/14/23 14:30 02/14/23 14:31 DC 02/14/23 14:41 324 MG (MAYRA RODRIGUEZ MD) Vital Signs/I&O 02/14/23 02/14/23 14:06 16:15 Temp 36.9 36.1 Pulse 97 80 Resp 18 16 B/P (MAP) 143/99 (114) 132/88 Pulse Ox 95 98 O2 Delivery Room Air Room Air (MAYRA RODRIGUEZ MD) Blood Pressure Mean: 114 Comment Sinus rhythm, incomplete right bundle branch block, 87 bpm, QRS duration 109 MS, QTc 385 MS (JESSICA OLSEN) Departure Communication (PCP) Patient is a 48-year-old male who presents ED with left-sided chest pressure pain. Symptoms over the past 5 to 7 days. This pain became worse 2 days ago lasting for 20 to 30 seconds. Woke up with pain last night. Episode this morning with exertion. On arrival currently pain-free. Cardiac work-up was obtained. Denies history of hypertension, diabetes, high cholesterol. History of smoking. Denies family cardiac history. States he has been seen for similar type chest pain in the past. Increase stress at home and states he has been smoking more. Differential diagnosis of pneumonia, ACS, anxiety, pericarditis, chest wall pain. EKG showed sinus rhythm with incomplete right bundle branch block. 87 bpm. Not tachycardic or hypoxic. Denies any recent travels or surgeries. No appreciation of leg swelling. Low risk factors for PE or DVT. CBC, CMP grossly unremarkable. Normal troponin and BNP. Received a full aspirin. He had no chest wall tenderness. Chest x-ray was negative for pneumonia, pneumothorax. No pain with eating. No abdominal tenderness. Heart score of 2. Low PERC score. Patient continued to remain asymptomatic. Does not appear to be cardiac in nature. Due to low heart score reassuring lab work reassuring EKG and chest x-ray patient will be discharged with strict return precautions and cardiac outpatient follow-up. No previous cardiac work-up has been obtained. Would recommend outpatient cardiac follow-up. Provided card iology and discharge instructions. Recommend rest. Avoid smoking and discussed smoking cessation. Any worsening symptoms return back to ED for further evaluation. Discussed mechanisms of handling stress anxiety at home. Recent loss of a loved one. (JESSICA OLSEN) Impression Primary Impression: Chest pain Disposition: 01 HOME, SELF-CARE Condition: Stable Departure-Patient Inst. Decision time for Depature: 15:53 (JESSICA OLSEN) Referrals: [facility] (PCP/Family) Primary Care Physician LOGAN VALENTIN MD FACP FACC CCDS Patient Instructions: Chest Pain (DC) Add. Discharge Instructions: Recommend following up with epic professional outpatient [place]. If any worsening symptoms return back to ED. All discharge instructions reviewed with patient and/or family. Voiced under standing. ATTENDING PHYSICIAN NOTE: I was physically present as attending physician in the emergency department during the care of this patient, but I was not directly involved in the decision making or delivery of care for this patient. (MAYRA RODRIGUEZ MD) JESSICA OLSEN Feb 14, 2023 14:33 MAYRA RODRIGUEZ MD Feb 14, 2023 21:12
[2023-02-14 15:04] LABS: BASOPHILS # (AUTO) 0.1 10^3/uL (0.0-0.1); BASOPHILS % (AUTO) 1 % (0-10); EOSINOPHILS # (AUTO) 0.4 10^3/uL (0.0-0.3); EOSINOPHILS % (AUTO) 4 % (0-10); HEMATOCRIT 46 % (40-54); HEMOGLOBIN 15.3 g/dL (13.3-17.7); LYMPHOCYTES # (AUTO) 2.2 10^3/uL (1.0-4.0); LYMPHOCYTES % (AUTO) 22 % (12-44); MEAN CORPUSCULAR HEMOGLOBIN 29 pg (25-34); MEAN CORPUSCULAR HGB CONC 33 g/dL (32-36); MEAN CORPUSCULAR VOLUME 88 fL (80-99); MEAN PLATELET VOLUME 8.9 fL (9.0-12.2); MONOCYTES # (AUTO) 0.8 10^3/uL (0.0-1.0); MONOCYTES % (AUTO) 8 % (0-12); NEUTROPHILS # (AUTO) 6.5 10^3/uL (1.8-7.8); NEUTROPHILS % (AUTO) 66 % (42-75); PLATELET COUNT 330 10^3/uL (130-400)
--- NOTE | 2023-02-14 15:11 | Diagnostic Imaging Report ---
INDICATION: Chest pain EXAM: Portable chest at 2:54 PM FINDINGS: The heart and mediastinum are normal. Lungs are clear. There are no effusions or pneumothoraces. IMPRESSION: Negative chest. Dictated by: Dictated on workstation # [id number]
[2023-02-14 15:16] LABS: ALBUMIN 4.1 GM/DL (3.2-4.5); CHLORIDE 105 MMOL/L (98-107); SODIUM 138 MMOL/L (135-145)
[2023-02-14 15:17] LABS: CALCIUM 9.3 MG/DL (8.5-10.1)
[2023-02-14 15:18] LABS: GLUCOSE 102 MG/DL (70-105)
[2023-02-14 15:19] LABS: PROTHROMBIN TIME PATIENT 13.1 SEC (12.2-14.7); TOTAL PROTEIN 7.2 GM/DL (6.4-8.2)
[2023-02-14 15:20] LABS: CARBON DIOXIDE 25 MMOL/L (21-32)
[2023-02-14 15:21] LABS: BILIRUBIN,TOTAL 0.4 MG/DL (0.1-1.0)
[2023-02-14 15:22] LABS: ALKALINE PHOSPHATASE 87 U/L (40-136); CREATININE SERUM 0.95 MG/DL (0.60-1.30); GFR ESTIMATED 99
[2023-02-14 15:23] LABS: BUN/CREATININE RATIO 13
[2023-02-14 15:25] LABS: ALANINE AMINOTRANSFERASE 34 U/L (0-55); MAGNESIUM 2.1 MG/DL (1.6-2.4)
[2023-02-14 16:15] VITALS: BP 132/88
== END 2023-02-14 16:15 | disposition home or self-care (01) ==
LOC: EDUNIT# 13:55 → ER 13:58
DX: R07.89 Other chest pain (principal); G47.30 Sleep apnea, unspecified; F17.210 Nicotine dependence, cigarettes, uncomplicated; Z99.89 Dependence on other enabling machines and devices
CPT/HCPCS: 36415; 71045; 80053; 83735; 83874; 84484; 85025; 85610; 85730; 93005; 93041